=== PATIENT | female | born 1990 | race Caucasian/White ===

== ENCOUNTER 2017-07-14 21:16 | Emergency (ER) | payer SELFPAY, OTHER ==
[2017-07-14] MEDS: ONDANSETRON (ODT) 4 MG TAB ODT (23:18)
[2017-07-14] MEDS: HYDROCODONE/APAP (5/325) TAB PO (23:18)
[2017-07-14 23:37] LABS: ADD UMIC YES; UR ASCORBIC ACID NEGATIVE (NEGATIVE); UR BILIRUBIN (Dip) NEGATIVE (NEGATIVE); UR BLOOD (Dip) 3+ mg/dL (NEGATIVE); UR CLARITY CLEAR (CLEAR); UR COLOR YELLOW (YELLOW); UR GLUCOSE (Dip) NEGATIVE (NEGATIVE); UR KETONES (Dip) NEGATIVE (NEGATIVE); UR LEUKOCYTE ESTERASE (Dip) 1+ Leu/ul (NEGATIVE); UR NITRITE (Dip) NEGATIVE (NEGATIVE); UR RBC 50 /HPF (0-5); UR SPECIFIC GRAVITY (Dip) 1.015 (1.003-1.030); UR TOTAL PROTEIN (Dip) NEGATIVE (NEGATIVE); UR UROBILINOGEN (Dip) NEGATIVE (NEGATIVE); UR WBC 7 /HPF (0-5)
== END 2017-07-15 00:55 | disposition home or self-care (01) ==
LOC: FTE 21:16
DX: N30.91 Cystitis, unspecified with hematuria (principal); J45.909 Unspecified asthma, uncomplicated; R31.29 Other microscopic hematuria
CPT/HCPCS: 74176; 81001; 87086; 99284-25